=== PATIENT | female | born 1950 | race Caucasian/White ===

== ENCOUNTER 2022-09-05 15:07 | Inpatient (IN) ==
[2022-09-05] MEDS ORDERED: IOPAMIDOL 100 ML BOTTLE IV ONE (15:08)
[2022-09-05] MEDS ORDERED: ONDANSETRON 4 MG/2 ML VIAL IV ONE (15:52)
--- NOTE | 2022-09-05 15:53 | Emergency Department Note ---
Abdominal Pain HPI General Chief Complaint: Abdominal Pain Stated Complaint: abd pain, n/v Time Seen by Provider: 09/05/22 15:34 Source: patient Mode of arrival: EMS History of Present Illness HPI Narrative: Narrative: 72-year-old female with past medical history of hypertension, gastritis, ileus and as below presents with sharp persistent moderate to severe abdominal pain associated with nausea and vomiting for 1 day. No headache dizziness chest pain diarrhea fever or chills Related Data Home Medications Medication Instructions Recorded Confirmed escitalopram oxalate 20 mg tablet 20 mg PO DAILY 07/21/19 07/21/19 gabapentin 300 mg capsule 300 mg PO BID 07/21/19 07/21/19 hydrocodone 10 mg-acetaminophen 1 each PO TIDP PRN Pain 07/21/19 07/21/19 325 mg tablet lisinopril 5 mg tablet 5 mg PO DAILY 07/21/19 07/21/19 tizanidine 2 mg tablet 2 mg PO Q8HP PRN unknown 07/21/19 07/21/19 trazodone 50 mg tablet 50 mg PO HS 07/21/19 07/21/19 Allergies Allergy/AdvReac Type Severity Reaction Status Date / Time No Known Drug Allergies Allergy Verified 05/15/21 22:07 Review of Systems ROS ROS Narrative: Narrative: All systems ED: reviewed and negative except as stated. Constitutional: Reports as per HPI [facility] Narrative Patient History Narrative: Narrative: Medical/Surgical/Family History All Active Problems (Updated 09/05/22 @ 18:56 by Geovany Delacruz MD) Leukocytosis, unspecified (Acute) Small bowel obstruction (Acute) Gastritis (Acute) Acute hypokalemia (Acute) Ileus (Acute) Abdominal pain (Acute) Hyponatremia (Acute) Abdominal pain (Acute) Complete obstruction of small intestine (Acute) Medical History (Updated 09/05/22 @ 18:56 by Geovany Delacruz MD) Pelvic abscess Surgical History (Updated 09/05/22 @ 18:53 by Geovany Delacruz MD) H/O exploratory laparotomy H/O resection of small bowel Exam Narrative Narrative: Narrative: General General appearance: Present alert and in no apparent distress Head Head: Present atraumatic and normocephalic Eye Eye: Present normal appearance ENT ENT: Present mucous membranes dry Respiratory Respiratory: Present normal lung sounds bilaterally Cardiovascular Cardiovascular: Present regular rate, normal rhythm and normal heart sounds Extremities Extremities: Absent pedal edema, cyanosis or clubbing Neurological Neurological: Present alert and oriented X3 Course Course Course Narrative: CBC, CMP, amylase, lipase, lactic acid, troponin, C-reactive protein, urinalysis, chest x-ray, CT abdomen/pelvis with contrast were obtained. Normal saline 1000 mL IV was given. Zofran 4 mg IV was given. BC count is high at 17.4 with left shift chest x-ray is negative for acute pathology. CT scan a bdomen pelvis is with contrast is consistent with [facility] NAME: Linden Saenz [address] [place] [address] : 1950 [address] Service Date: 09/05/22 Report # [id number] [place] [address] Nitin Witt M.D. MR #: [id number] Cat Scan Report Signed Ordering Physician:Andres Hale M.D. Date of Service:09/05/22 Procedure(s):CT abdomen pelvis w con INDICATION: abdominal pain, vomiting. History of abdominal surgery although the surgical procedure is not provided COMPARISON: Previous CT scan dated 08/27/2021 TECHNIQUE: Axial images were obtained through the abdomen and pelvis. Sagittally and coronally reformatted images. 70 mL Isovue 370 injected intravenously. Oral contrast material was not administered FINDINGS: Lung bases:Negative. No pulmonary parenchymal nodule. No pleural fluid or pericardial fluid Liver:Negative. No focal intrahepatic mass. No focal abnormality. Liver contour is smooth. No evidence for cirrhosis. There is no biliary or portal venous gas Gallbladder, bilary:No calcified gallstones. No gallbladder wall thickening. No dilated intra or extrahepatic bile ducts. Spleen:No splenomegaly. Normal enhancement of splenic and portal veins. Pancreas:No pancreatic mass. No peripancreatic abnormality Adrenal glands:Negative Kidneys,ureters,bladder:No solid renal mass. No hydronephrosis. No obstructing or nonobstructing calculi. No hydroureter. No ureteral calculus. No bladder stone. No detectable bladder mass. Gastrointestinal:There is an anastomotic suture line in the pelvis. This is presumably in the cecum. There is fecal material. The appendix is visualized although the origin is difficult to determine to evaluate for position of the cecum. The colon is otherwise negative. Dilated fluid-filled small bowel. Jejunum measures 3 cm in cross-sectional diameter. There appears to be a transitional point in the pelvis and there is some fecalization of small bowel contents. Appearance is consistent with small bowel obstruction. Stomach is distended and fluid-filled Appendix: The appendix is visualized and is normal Vascular:There is calcification of the abdominal aorta. No abdominal aortic aneurysm there is calcification at the origin of the celiac trunk and superior mesenteric artery. These vessels are patent Lymphatic:No retroperitoneal or mesenteric adenopathy Mesentery, peritoneum: No free intraperitoneal fluid. No mesenteric or retroperitoneal mass. No intra-abdominal abscess. There is no pneumoperitoneum Reproductive:Uterus is not visualized. There is no adnexal mass Musculoskeletal:Severe degenerative disc disease at L4-5 No abdominal wall or inguinal hernia IMPRESSION: 1. Findings consistent with previous colonic surgery at the level of the cecum 2. Distended fluid-filled small bowel with fecalized contents. Appearance is consistent with mechanical small bowel obstruction. Transition point appears to be in the upper mid pelvis 3. Degenerative disc disease at L4-5. 4. Atherosclerotic calcification. No abdominal aortic aneurysm Will get surgical consult. Dr. Dr. Delacruz who will come and see the patient. Vital Signs Vital signs: Vital Signs Temperature 97.3 F 09/05/22 15:12 Pulse Rate 92 H 09/05/22 15:12 Respiratory Rate 16 09/05/22 15:12 Blood Pressure 183/138 09/05/22 15:12 Pulse Oximetry (%) 98 09/05/22 15:12 Oxygen Delivery Method 09/05/22 15:12 Temperature 97.3 F 09/05/22 15:12 Pulse Rate 92 H 09/05/22 18:38 Respiratory Rate 16 09/05/22 15:12 Blood Pressure 150/90 09/05/22 18:30 Pulse Oximetry (%) 97 09/05/22 18:38 Oxygen Delivery Method 09/05/22 15:12 [facility] MDM Narrative Medical decision making narrative: Narrative: Lab Data Result diagrams: 09/05/22 15:50 Labs: Lab Results 09/05/22 09/05/22 09/05/22 Range/Units 15:50 15:50 15:50 WBC 17.4 H (4.5-11.0) K/mcL RBC 4.91 (3.59-5.38) M/mcL Hgb 15.1 (11.2-15.7) g/dL Hct 43.7 (34.1-44.9) % POC Hct (36-48) MCV 89.0 (80.0-100.0) fL MCH 30.8 (26.0-34.0) pg MCHC 34.6 (31.0-36.0) g/dL RDW 12.2 (11.5-14.5) % Plt Count 522 H (140-440) K/mcL MPV 9.5 (8.8-12.5) fL Immature Gran % (Auto) 0.4 (0.0-0.5) % Neut % (Auto) 83.4 H (38.0-78.0) % Lymph % (Auto) 12.0 L (15.5-49.0) % [place] % (Auto) 3.8 (1.0-12.0) % Eos % (Auto) 0.2 (0.0-7.0) % Baso % (Auto) 0.2 (0.0-2.0) % Lymph # (Auto) 2.09 (1.50-4.80) K/mcL [place] # (Auto) 0.67 (0.10-0.90) K/mcL Eos # (Auto) 0.03 (0.00-0.70) K/mcL Baso # (Auto) 0.03 (0.00-0.30) K/mcL Immature Gran # 0.07 H (0.00-0.05) K/mcl Absolute Neutrophils 14.53 H (1.80-8.00) K/mcL VBG Lactic Acid 1.7 (0.5-2.0) mmol/L POC Sodium (133-145) POC Potassium (3.3-5.1) POC Chloride (96-108) POC Total CO2 (22-30) POC BUN (6-20) POC Creatinine (0.6-1.2) POC Glucose (70-105) POC WB Ioniz Calcium (1.16-1.32) Total Bilirubin 0.5 (0.1-1.0) mg/dL Direct Bilirubin < 0.2 (0-0.3) mg/dL AST 26 (<32) U/L ALT 16 (<40) U/L Alkaline Phosphatase 93 (39-117) U/L Troponin T < 0.01 (<0.03) ng/mL C-Reactive Protein < 0.30 (0.03-0.80) mg/dL Total Protein 8.0 (5.9-8.4) gm/dL Albumin 4.8 (3.2-5.2) gm/dL Globulin 3.2 (2.2-3.7) gm/dL Amylase 64 (28-100) U/L 09/05/22 Range/Units 15:54 WBC (4.5-11.0) K/mcL RBC (3.59-5.38) M/mcL Hgb (11.2-15.7) g/dL Hct (34.1-44.9) % POC Hct 48.0 (36-48) MCV (80.0-100.0) fL MCH (26.0-34.0) pg MCHC (31.0-36.0) g/dL RDW (11.5-14.5) % Plt Count (140-440) K/mcL MPV (8.8-12.5) fL Immature Gran % (Auto) (0.0-0.5) % Neut % (Auto) (38.0-78.0) % Lymph % (Auto) (15.5-49.0) % [place] % (Auto) (1.0-12.0) % Eos % (Auto) (0.0-7.0) % Baso % (Auto) (0.0-2.0) % Lymph # (Auto) (1.50-4.80) K/mcL [place] # (Auto) (0.10-0.90) K/mcL Eos # (Auto) (0.00-0.70) K/mcL Baso # (Auto) (0.00-0.30) K/mcL Immature Gran # (0.00-0.05) K/mcl Absolute Neutrophils (1.80-8.00) K/mcL VBG Lactic Acid (0.5-2.0) mmol/L POC Sodium 136 (133-145) POC Potassium 3.3 (3.3-5.1) POC Chloride 101 (96-108) POC Total CO2 21.0 L (22-30) POC BUN 12 (6-20) POC Creatinine 0.7 (0.6-1.2) POC Glucose 124 H (70-105) POC WB Ioniz Calcium 1.15 L (1.16-1.32) Total Bilirubin (0.1-1.0) mg/dL Direct Bilirubin (0-0.3) mg/dL AST (<32) U/L ALT (<40) U/L Alkaline Phosphatase (39-117) U/L Troponin T (<0.03) ng/mL C-Reactive Protein (0.03-0.80) mg/dL Total Protein (5.9-8.4) gm/dL Albumin (3.2-5.2) gm/dL Globulin (2.2-3.7) gm/dL Amylase (28-100) U/L Discharge Plan Patient/Caregiver Discharge Instructions Pt seen by DIRECTOR OF SUSTAINABILITY PROGRAMS/PA only: No Clinical Impression: Abdominal pain, Complete obstruction of small intestine Patient Disposition: Xfer As Inpt ([facility]) Condition: Fair Follow up with: Marguerite Sims ARNP [Primary Care Provider] - Prescriptions: No Action tizanidine 2 MG tablet 2 mg PO Q8HP PRN (Reason: unknown) trazodone 50 MG tablet 50 mg PO HS hydrocodone-acetaminophen 1 EACH tablet 1 each PO TIDP PRN (Reason: Pain) gabapentin 300 MG capsule 300 mg PO BID lisinopril 5 MG tablet 5 mg PO DAILY escitalopram oxalate 20 MG tablet 20 mg PO DAILY
[2022-09-05] MEDS ORDERED: 0.9 % SODIUM CHLORIDE 1,000 ML IV ONE (15:56)
[2022-09-05 15:57] LABS: POC Calcium, Ionized 1.15 (1.16-1.32); POC Creatinine 0.7 (0.6-1.2); POC Potassium 3.3 (3.3-5.1)
[2022-09-05] MEDS ORDERED: HYDROmorphone 0.5 MG/0.5 ML SYRINGE IV ONE ×2 (15:57→16:57)
[2022-09-05 16:54] LABS: Basophils # (Auto) 0.03 K/mcL (0.00-0.30); Basophils % (Auto) 0.2 % (0.0-2.0); Eosinophils # (Auto) 0.03 K/mcL (0.00-0.70); Eosinophils % (Auto) 0.2 % (0.0-7.0); Hematocrit 43.7 % (34.1-44.9); Hemoglobin 15.1 g/dL (11.2-15.7); Lymphocytes # (Auto) 2.09 K/mcL (1.50-4.80); Mean Corpuscular HGB Conc 34.6 g/dL (31.0-36.0); Mean Platelet Volume 9.5 fL (8.8-12.5); Monocytes # (Auto) 0.67 K/mcL (0.10-0.90); Monocytes % (Auto) 3.8 % (1.0-12.0); Neutrophils % (Auto) 83.4 % (38.0-78.0); Platelet Count 522 K/mcL (140-440); RBC 4.91 M/mcL (3.59-5.38); Red Cell Distribution Width 12.2 % (11.5-14.5); WBC 17.4 K/mcL (4.5-11.0)
--- NOTE | 2022-09-05 17:00 | Cat Scan Report ---
INDICATION: abdominal pain, vomiting. History of abdominal surgery although the surgical procedure is not provided COMPARISON: Previous CT scan dated 08/27/2021 TECHNIQUE: Axial images were obtained through the abdomen and pelvis. Sagittally and coronally reformatted images. 70 mL Isovue 370 injected intravenously. Oral contrast material was not administered FINDINGS: Lung bases:Negative. No pulmonary parenchymal nodule. No pleural fluid or pericardial fluid Liver:Negative. No focal intrahepatic mass. No focal abnormality. Liver contour is smooth. No evidence for cirrhosis. There is no biliary or portal venous gas Gallbladder, bilary:No calcified gallstones. No gallbladder wall thickening. No dilated intra or extrahepatic bile ducts. Spleen:No splenomegaly. Normal enhancement of splenic and portal veins. Pancreas:No pancreatic mass. No peripancreatic abnormality Adrenal glands:Negative Kidneys,ureters,bladder:No solid renal mass. No hydronephrosis. No obstructing or nonobstructing calculi. No hydroureter. No ureteral calculus. No bladder stone. No detectable bladder mass. Gastrointestinal:There is an anastomotic suture line in the pelvis. This is presumably in the cecum. There is fecal material. The appendix is visualized although the origin is difficult to determine to evaluate for position of the cecum. The colon is otherwise negative. Dilated fluid-filled small bowel. Jejunum measures 3 cm in cross-sectional diameter. There appears to be a transitional point in the pelvis and there is some fecalization of small bowel contents. Appearance is consistent with small bowel obstruction. Stomach is distended and fluid-filled Appendix: The appendix is visualized and is normal Vascular:There is calcification of the abdominal aorta. No abdominal aortic aneurysm there is calcification at the origin of the celiac trunk and superior mesenteric artery. These vessels are patent Lymphatic:No retroperitoneal or mesenteric adenopathy Mesentery, peritoneum: No free intraperitoneal fluid. No mesenteric or retroperitoneal mass. No intra-abdominal abscess. There is no pneumoperitoneum Reproductive:Uterus is not visualized. There is no adnexal mass Musculoskeletal:Severe degenerative disc disease at L4-5 No abdominal wall or inguinal hernia IMPRESSION: 1. Findings consistent with previous colonic surgery at the level of the cecum 2. Distended fluid-filled small bowel with fecalized contents. Appearance is consistent with mechanical small bowel obstruction. Transition point appears to be in the upper mid pelvis 3. Degenerative disc disease at L4-5. 4. Atherosclerotic calcification. No abdominal aortic aneurysm The exam was performed using radiation dose optimization techniques including, but not limited to, automated exposure control, adjustment of the mA and/or kV according to patient size and use of iterative reconstruction technique. Interpreted and Authenticated by: Nitin Witt 09/05/22
[2022-09-05 17:19] LABS: ALT/SGPT 16 U/L (<40); AST/SGOT 26 U/L (<32); Albumin 4.8 gm/dL (3.2-5.2); Alkaline Phosphatase 93 U/L (39-117); Amylase 64 U/L (28-100); Bilirubin,Direct < 0.2 mg/dL (0-0.3); Bilirubin,Total 0.5 mg/dL (0.1-1.0); C-Reactive Protein < 0.30 mg/dL (0.03-0.80); Globulin 3.2 gm/dL (2.2-3.7)
--- NOTE | 2022-09-05 17:21 | XRay Report ---
INDICATION: abdominal pain TECHNIQUE: AP portable upright chest x-ray COMPARISON: None FINDINGS: Lungs:Lungs are negative. No focal pulmonary parenchymal infiltrate or mass Heart, vascular:No significant cardiomegaly. Pulmonary vascularity is normal. No pulmonary edema or pulmonary congestion Mediastinum, charlene:No mediastinal widening. No hilar mass Pleura:No pleural fluid. No pleural-based mass or calcification Skeletal:Negative. IMPRESSION: Negative AP chest x-ray Interpreted and Authenticated by: Nitin Witt 09/05/22
[2022-09-05] MEDS ORDERED: ONDANSETRON 4 MG/2 ML VIAL IV PRN (18:30)
[2022-09-05] MEDS ORDERED: PROMETHAZINE 25 MG/ML VIAL IV PRN (18:30)
--- NOTE | 2022-09-05 18:46 | General Surg History&Physical ---
HPI History of Present Illness Patient information: Note initiated : 09/05/22 at 6:46 pm Service Date, if different from initiated Date: [] Patient: Linden Saenz a 72 y/o F admitted on for abd pain, n/v. Chief Complaint: [] Chief complaint: Small bowel obstruction History of present illness: Ms. Saenz is a 72 year old F admitted with a 48-hour history of crampy abdominal pain with nausea and vomiting. The patient has a prior history of a partial intestinal obstruction. She has been seen in the emergency room for evaluation but symptoms have resolved spontaneously. She presents with new onset of crampy lower abdominal pain with abdominal distention. She had regular small bowel movement last evening and today. She had some flatus on yesterday but none today. CT of the abdomen suggest partial small bowel obstruction with the area of partial obstruction being in the pelvis. Her colon does not appear to be dilated or obstructed. Patient is admitted and will start on nasogastric suction. She will probably need to have small bowel follow-through in the morning based on her morning abdominal x-rays. This is discussed with the patient and her significant other and they agree with this plan. Constitutional Constitutional: Present fatigue, lethargy, malaise, weakness and weight loss EENT Ears: Absent decreased hearing, ear pain or tinnitus Nose, mouth and throat: Absent dizziness, dysphagia, tongue swelling or vertigo Respiratory Respiratory: Absent cough, wheezing or chest congestion Gastrointestinal Gastrointestinal: Present abdominal pain, belching, constipation, cramping, early satiety, heartburn, nausea and vomiting; Absent tenesmus Genitourinary Genitourinary: Absent urinary frequency, urinary hesitancy or urinary urgency Musculoskeletal Musculoskeletal: Absent abnormal gait, myalgias, neck pain, numbness or stiffness Integumentary Integumentary: Absent changing lesions, new lesions, pruritus or rash Neurological Neurological: Absent abnormal gait, abnormal movements, abnormal speech, behavioral changes, focal weakness, memory loss or syncope Psychiatric Psychiatric: Absent depression Endocrine Endocrine: Absent excessive sweating, heat intolerance or palpitations Hematologic/Lymphatic Hematologic/Lymphatic: Absent easy bleeding, easy bruising or lymphadenopathy Allergic/Immunologic Allergic/Immunologic: Absent tongue swelling, throat swelling, seasonal rhinorrhea, uticaria, wheezing or lip swelling PFSH PFSH All Active Problems (Updated 09/05/22 @ 18:56 by Geovany Delacruz MD) Leukocytosis, unspecified (Acute) Small bowel obstruction (Acute) Gastritis (Acute) Acute hypokalemia (Acute) Ileus (Acute) Abdominal pain (Acute) Hyponatremia (Acute) Abdominal pain (Acute) Complete obstruction of small intestine (Acute) Medical History (Updated 09/05/22 @ 18:56 by Geovany Delacruz MD) Pelvic abscess Surgical History (Updated 09/05/22 @ 18:53 by Geovany Delacruz MD) H/O exploratory laparotomy H/O resection of small bowel MEDS/ALLERGIES Home Medications and Allergies Home Medications Medication Instructions Recorded Confirmed Type escitalopram oxalate 20 mg tablet 20 mg PO DAILY 07/21/19 07/21/19 History gabapentin 300 mg capsule 300 mg PO BID 07/21/19 07/21/19 History hydrocodone 10 mg-acetaminophen 1 each PO TIDP PRN Pain 07/21/19 07/21/19 History 325 mg tablet lisinopril 5 mg tablet 5 mg PO DAILY 07/21/19 07/21/19 History tizanidine 2 mg tablet 2 mg PO Q8HP PRN unknown 07/21/19 07/21/19 History trazodone 50 mg tablet 50 mg PO HS 07/21/19 07/21/19 History Allergies Allergy/AdvReac Type Severity Reaction Status Date / Time No Known Drug Allergies Allergy Verified 05/15/21 22:07 Physical Examination Vital Signs Vital signs: Temp Pulse Resp BP Pulse Ox O2 Del Method 97.3 F 92 H 16 150/90 97 09/05/22 15:12 09/05/22 18:38 09/05/22 15:12 09/05/22 18:30 09/05/22 18:38 09/05/22 15:12 General physical appearance General physical exam: moderate distress, moderate pain, cachectic and chronically ill Eyes Eye exam: PERRL and normal ocular movement ENT ENT exam: normal nares, normal mucosa, no hearing loss, no congestion and poor fdc Head Head exam IM: Present atraumatic, normal inspection and normocephalic Neck Neck exam: no masses, no bruits, trachea midline, no lymphadenopathy and no venous distension Cardiovascular Cardiovascular exam IM: Present normal rate and rhythm, RRR, +S1 and +S2; Absent JVD, systolic murmur or tachycardia Respiratory Respiratory exam: normal expansion, normal respiratory effort and clear to auscultation Abdomen Abdomen: Present tender (Tender in suprapubic and hypogastric area) and distended (Distention of the lower abdomen) Hernia: Present none Integumentary Integumentary: Present no rash, no growths and no abnormal pigmentation Neurologic Neurologic: Present normal coordination and normal sensation Musculoskeletal Musculoskeletal: Present normal gait and normal posture Psychiatric Psychiatric: Present oriented to time, oriented to person, oriented to place, speech is normal and memory intact Results Labs Result diagrams: 09/05/22 15:50 Labs: Abnormal lab results 09/05/22 09/05/22 Range/Units 15:50 15:54 WBC 17.4 H (4.5-11.0) K/mcL Plt Count 522 H (140-440) K/mcL Neut % (Auto) 83.4 H (38.0-78.0) % Lymph % (Auto) 12.0 L (15.5-49.0) % Immature Gran # 0.07 H (0.00-0.05) K/mcl Absolute Neutrophils 14.53 H (1.80-8.00) K/mcL POC Total CO2 21.0 L (22-30) POC Glucose 124 H (70-105) POC WB Ioniz Calcium 1.15 L (1.16-1.32) Diabetes panel 09/05/22 Range/Units 15:50 AST 26 (<32) U/L ALT 16 (<40) U/L Alkaline Phosphatase 93 (39-117) U/L Total Protein 8.0 (5.9-8.4) gm/dL Albumin 4.8 (3.2-5.2) gm/dL Calcium panel 09/05/22 Range/Units 15:50 Albumin 4.8 (3.2-5.2) gm/dL Adrenal panel 09/05/22 Range/Units 15:50 Total Bilirubin 0.5 (0.1-1.0) mg/dL AST 26 (<32) U/L ALT 16 (<40) U/L Alkaline Phosphatase 93 (39-117) U/L Total Protein 8.0 (5.9-8.4) gm/dL Albumin 4.8 (3.2-5.2) gm/dL All other labs normal. A/P Assessment and plan (1) Small bowel obstruction: Status: Acute (2) Abdominal pain: Status: Acute (3) Leukocytosis, unspecified: Status: Acute Plan Nasogastric suction tonight 2 view abdominal x-rays in the morning Small bowel follow-through after initial x-rays Zosyn 3.375 g IV every 6 Reglan 10 mg IV every 6 RellSTOR 12 mg subcu daily Time Spent With Patient Time: Total time spent is greater than 50% in coordination of care (as documented) at patient's floor/unit and/or counseling patient:
[2022-09-05] MEDS: PIPERACILLIN SODIUM/TAZOBACTAM 3.375 GM in DEXTROSE 5% IN WATER 50 ML IV SCH (19:25)
[2022-09-05] MEDS: 0.9 % SODIUM CHLORIDE 1,000 ML IV SCH (19:25)
[2022-09-05] MEDS: HYDROmorphone 0.5 MG/0.5 ML SYRINGE IV PRN ×2 (20:21→22:26)
[2022-09-05 21:13] LABS: Appearance,Urine CLEAR (Clear); Bilirubin,Urine Negative (Negative); Color,Urine YELLOW; Culture Indicated,Urine No; Glucose,Urine (UA) Negative (Negative); Ketones,Urine 5 mg/dL (Negative); Leukocyte Esterase,Urine Negative /uL (Negative); Nitrate,Urine Negative (Negative); Protein,Urine Negative (Negative); Specific Gravity,Urine > 1.060 (1.000-1.035); Urine Blood Negative (Negative); Urobilinogen,Urine Negative
[2022-09-05] MEDS ORDERED: ACETAMINOPHEN 1,000 MG/100 ML BAG IV ONE (22:10)
[2022-09-05] MEDS: ACETAMINOPHEN 650 MG/65 ML BAG IV PRN (22:12)
[2022-09-05] MEDS: 0.9 % SODIUM CHLORIDE 10 ML SYRINGE IV SCH (22:14)
[2022-09-06] MEDS: PIPERACILLIN SODIUM/TAZOBACTAM 3.375 GM in DEXTROSE 5% IN WATER 50 ML IV SCH ×5 (00:23→23:41)
[2022-09-06] MEDS: HYDROmorphone 0.5 MG/0.5 ML SYRINGE IV PRN ×2 (00:24→03:41)
[2022-09-06] MEDS: METOCLOPRAMIDE 10 MG/2 ML VIAL IV SCH ×5 (00:30→23:41)
[2022-09-06] MEDS: 0.9 % SODIUM CHLORIDE 1,000 ML IV SCH ×4 (03:48→22:07)
[2022-09-06] MEDS: 0.9 % SODIUM CHLORIDE 10 ML SYRINGE IV SCH ×3 (05:33→20:12)
--- NOTE | 2022-09-06 05:51 | XRay Report ---
INDICATION: NG placement TECHNIQUE: Supine abdomen. COMPARISON: CT scan dated 09/05/2022 FINDINGS:Esophagogastric tube with its tip in the left upper quadrant consistent with gastric fundus. Prominent gas-filled small bowel, essentially unchanged since previous CT scan. IMPRESSION: Esophagogastric tube in the stomach Interpreted and Authenticated by: Nitin Witt 09/06/22
[2022-09-06 07:49] LABS: ALT/SGPT 33 U/L (<40); AST/SGOT 53 U/L (<32); Albumin 3.4 gm/dL (3.2-5.2); Albumin/Globulin Ratio 1.5 (1.0-2.3); Alkaline Phosphatase 64 U/L (39-117); Bilirubin,Direct < 0.2 mg/dL (0-0.3); Bilirubin,Total 0.3 mg/dL (0.1-1.0); Blood Urea Nitrogen 8 mg/dL (8-23); Calcium 8.3 mg/dL (8.6-10.4); Carbon Dioxide 22 mmol/L (22-30); Chloride 103 mmol/L (96-108); Globulin 2.3 gm/dL (2.2-3.7); Glomerular Filtration Rate 88; Glucose 100 mg/dL (70-105); Lactate Dehydrogenase 204 U/L (135-225); Phosphorous 3.9 mg/dL (2.5-4.5); Triglycerides 111 mg/dL (<150); Uric Acid 2.6 mg/dL (2.5-8.0)
[2022-09-06 08:39] LABS: Basophils # (Auto) 0.03 K/mcL (0.00-0.30); Basophils % (Auto) 0.2 % (0.0-2.0); Eosinophils % (Auto) 0.7 % (0.0-7.0); Hematocrit 35.3 % (34.1-44.9); Hemoglobin 11.7 g/dL (11.2-15.7); Lymphocytes # (Auto) 3.52 K/mcL (1.50-4.80); Lymphocytes % (Auto) 25.5 % (15.5-49.0); Mean Cell Volume 93.9 fL (80.0-100.0); Mean Corpuscular HGB Conc 33.1 g/dL (31.0-36.0); Mean Platelet Volume 9.4 fL (8.8-12.5); Monocytes # (Auto) 1.27 K/mcL (0.10-0.90); Monocytes % (Auto) 9.2 % (1.0-12.0); Neutrophils % (Auto) 64.1 % (38.0-78.0); Platelet Count 393 K/mcL (140-440); RBC 3.76 M/mcL (3.59-5.38); Red Cell Distribution Width 12.7 % (11.5-14.5); WBC 13.8 K/mcL (4.5-11.0)
[2022-09-06] MEDS: METHYLNALTREXONE BROMIDE 12 MG/0.6 ML SYRINGE SQ SCH (08:40)
[2022-09-06] MEDS: ACETAMINOPHEN 650 MG/65 ML BAG IV PRN (08:47)
--- NOTE | 2022-09-06 10:02 | XRay Report ---
INDICATION: F/U SMALL BOWEL OBSTRUCTION TECHNIQUE: Supine and upright abdomen. COMPARISON: Previous abdomen dated 09/06/2022. Previous CT scan dated 09/05/2022 FINDINGS:No change in position of esophagogastric tube in left upper quadrant There is gas within small bowel. There are associated air-fluid levels. Appearance remains consistent with obstruction. Continued follow-up recommended. IMPRESSION: Findings consistent with mechanical small bowel obstruction Interpreted and Authenticated by: Nitin Witt 09/06/22
--- NOTE | 2022-09-06 11:12 | General Surgery Progress Note ---
SUBJECTIVE Subjective Patient information: Note initiated : 09/06/22 at 11:12 am Service Date, if different from initiated Date: [] Patient: Linden Saenz 72 y/o F admitted on 09/05/22 for abd pain, n/v. Chief Complaint: [] Principal diagnosis: Partial small bowel obstruction Interval history: Patient states that she feels better. Her abdominal pain is significantly improved. She has less distention and her abdomen is soft. White blood count 13.8, hemoglobin 11.7, hematocrit 35.3, potassium 3, BUN 6, creatinine 0.5 Constitutional Vitals: Vital Signs Temp Pulse Resp BP Pulse Ox O2 Del Method 98.4 F 83 16 135/82 95 09/06/22 07:52 09/06/22 03:42 09/06/22 07:52 09/06/22 07:52 09/06/22 07:52 09/06/22 07:52 Period Temp Pulse Resp BP Sys/Bernal Pulse Ox O2 Del Method O2 Flow Rate Last 24 Hr 97.3 F-98.8 F 80-95 16-16 131-186/81-138 90-100 Room Air-Room Air Intake and Output 09/05/22 09/06/22 09/06/22 21:59 05:59 13:59 Intake Total 1246 115 115 Output Total 300 Balance 1246 -185 115 Weight 102 lb 12.8 oz Intake & Output: Intake & Output 09/05/22 09/06/22 09/06/22 21:59 05:59 13:59 Intake Total 1246 115 115 Output Total 300 Balance 1246 -185 115 Weight 102 lb 12.8 oz Intake: IV 1246 115 115 Sodium Chloride 0.9% 1,000 ml @ 1196 0 125 mls/hr IV .Q8H TERESA Rx#: [id number] Zosyn 3.375 gm In Dextrose 5% 50 50 50 in Water 50 ml @ 100 mls/hr IV Q6H TERESA Rx#:[id number] Output: Gastric Drainage 200 Right Nare 200 Void Amount 100 Other: Urine Appearance Clear Urine Color Yellow ENT ENT exam: Present normal exam and normal oropharynx Neck Neck exam: Present full ROM and normal inspection; Absent tenderness Respiratory Respiratory exam: Present normal respiratory exam and CTAB; Absent rales Cardiovascular Cardiovascular exam: Present normal rate and rhythm, RRR, +S1 and +S2; Absent gallop or JVD GI/Abdominal GI/Abdominal exam: Present normal bowel sounds (Active bowel sounds), soft (Mild hypogastric tenderness) and distended (Mild distention); Absent guarding Extremities Exam Extremities exam: Present normal inspection and neurovascular intact Neurological Exam Neurological exam: Present oriented X3 and reflexes normal; Absent motor sensory deficit Psychiatric Psychiatric exam: Present normal affect and normal mood A/P Assessment and plan (1) Small bowel obstruction: Status: Acute (2) Leukocytosis, unspecified: Status: Acute (3) Acute hypokalemia: Status: Acute Plan Schedule small bowel follow-through Potassium chloride rider x2 2 view abdominal x-ray in the morning Time Spent With Patient Time: Total time spent is greater than 50% in coordination of care (as documented) at patient's floor/unit and/or counseling patient:
[2022-09-06] MEDS ORDERED: POTASSIUM CHLORIDE 40 MEQ in DEXTROSE 5% IN WATER 500 ML IV ONE (12:00)
[2022-09-06] MEDS ORDERED: DIATRIZOATE MEGLU/DIATRIZO SOD 120 ML BOTTLE PO ONE (13:34)
--- NOTE | 2022-09-06 14:43 | XRay Report ---
INDICATION: Follow-up partial small bowel obstruction TECHNIQUE: Diluted Gastrografin was injected into the stomach through the esophagogastric tube. COMPARISON: None. FINDINGS: There is contrast material within the colon by 2 hours post ingestion. Small bowel is only slightly dilated. Findings are not consistent with significant mechanical small bowel obstruction IMPRESSION: Contrast material within the colon by 2 hours post ingestion Interpreted and Authenticated by: Nitin Witt 09/06/22
--- NOTE | 2022-09-06 20:59 | EKG ---
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 [id number]
[2022-09-07] MEDS: HYDROmorphone 0.5 MG/0.5 ML SYRINGE IV PRN ×3 (02:39→13:43)
[2022-09-07] MEDS: 0.9 % SODIUM CHLORIDE 10 ML SYRINGE IV SCH ×2 (04:54→12:05)
[2022-09-07] MEDS: PIPERACILLIN SODIUM/TAZOBACTAM 3.375 GM in DEXTROSE 5% IN WATER 50 ML IV SCH ×2 (04:57→12:05)
[2022-09-07] MEDS: METOCLOPRAMIDE 10 MG/2 ML VIAL IV SCH ×2 (05:34→12:05)
[2022-09-07] MEDS: 0.9 % SODIUM CHLORIDE 1,000 ML IV SCH ×2 (08:11→13:35)
[2022-09-07] MEDS: METHYLNALTREXONE BROMIDE 12 MG/0.6 ML SYRINGE SQ SCH (08:33)
--- NOTE | 2022-09-07 09:47 | XRay Report ---
CLINICAL INFORMATION: Resolve SBO COMPARISON: 09/06/2022 small bowel follow-through study FINDINGS: The stool gas pattern is unremarkable. Minimal residual barium is seen within the colon There is no free air, soft tissue mass, organomegaly or pathologic calcification. IMPRESSION: Normal abdomen with no evidence of small bowel obstruction. Interpreted and Authenticated by: Nitin Phan 09/07/22
[2022-09-07] MEDS: ACETAMINOPHEN 650 MG/65 ML BAG IV PRN (10:41)
--- NOTE | 2022-09-07 15:25 | Discharge Summary ---
Discharge Provider Provider IMPORTANT FOLLOW-UP INFORMATION FOR PCP: Patient information: Note initiated : 09/07/22 at 3:19 pm Service Date, if different from initiated Date: [] Patient: Linden Saenz 72 y/o F admitted on 09/05/22 for abd pain, n/v. Chief Complaint: [] Date of admission: 09/05/22 21:24 Discharge date: 09/07/22 Primary care physician: Marguerite Sims Admitting clinician: Geovany Delacruz Attending physician on admission: Geovany Delacruz Consults: 09/05/22 Consult to Physician [CONS] Stat Comment: Consulting Provider: Geovany Delacruz Reason For Exam: Physician to Consult Attending physician on discharge: Geovany Delacruz Discharging clinician: Geovany Delacruz COURSE Hospital Course Hospital course: 72-year-old female with prior history of extensive surgery at [facility]. She was hospitalized 60 days after colon resection and reanastomosis. This was followed by an anastomotic leak with multiple peritoneal abscesses. These were drained spontaneously and percutaneously. 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 She presents with increasing abdominal pain nausea and vomiting. She also has decreased flatus and constipation. Patient has been on chronic hydrocodone therapy. She is admitted for nasogastric suction with plans for follow-up small bowel follow-through. The small bowel follow-through showed transit through the bowel into the colon. She did well thereafter and her diet was advanced. Presently she is tolerating diet and is having regular flatus and bowel movements. She is discharged home in satisfactory condition. Discharge diagnosis: Small bowel obstruction Secondary discharge diagnosis: Small bowel obstruction Intra-abdominal adhesions Chronic opiate pain therapy Reason for admission: Small bowel obstruction Procedures: CT of abdomen and pelvis with IV contrast Small bowel follow-through Pertinent studies/significant findings: Small bowel follow-through Complications: None Time Spent with Patient Time attestation: Total time spent providing and/or coordinating discharge services: Time spent: Less than 30 minutes Physical Examination Vital Signs Vital signs: Temp Pulse Resp BP Pulse Ox O2 Del Method 98.1 F 72 20 155/94 98 09/07/22 12:00 09/07/22 12:00 09/07/22 12:00 09/07/22 12:00 09/07/22 12:00 09/07/22 08:00 General physical appearance General physical exam: no distress, no pain, cachectic and chronically ill Eyes Eye exam: PERRL and normal ocular movement ENT ENT exam: normal nares, normal mucosa and no hearing loss Head Head exam IM: Present atraumatic, normal inspection and normocephalic Neck Neck exam: no masses, no bruits, trachea midline, no lymphadenopathy and no venous distension Cardiovascular Cardiovascular exam IM: Present normal rate and rhythm, RRR, +S1 and +S2; Absent JVD or tachycardia Respiratory Respiratory exam: normal expansion, normal respiratory effort and clear to auscultation Abdomen Abdomen: Present soft, non tender and bowel sounds (Normal active bowel sounds) Integumentary Integumentary: Present no rash, no growths and no abnormal pigmentation Neurologic Neurologic: Present normal coordination and normal sensation Musculoskeletal Musculoskeletal: Present normal gait and normal posture Psychiatric Psychiatric: Present oriented to time, oriented to person, oriented to place, speech is normal and memory intact Discharge Plan Patient/Caregiver Discharge Instructions Activity: increase activity as tolerated Diet: Regular Diet Prescriptions: Continued tizanidine 2 MG tablet 2 mg PO Q8HP PRN (Reason: Muscle Spasm) trazodone 50 MG tablet 50 mg PO HS hydrocodone-acetaminophen 1 EACH tablet 1 each PO TIDP PRN (Reason: Pain) lisinopril 5 MG tablet 10 mg PO DAILY B Complex 1 tab PO QDAY buspirone 5 mg tablet 1 tab PO BID magnesium oxide 400 mg (241.3 mg magnesium) tablet 1 tab PO QDAY duloxetine 30 mg capsule,delayed release(DR/EC) 3 cap PO QDAY Prescription drug monitoring program results: PDMP not reviewed Follow Up Plan Follow up with: Marguerite Sims ARNP [Primary Care Provider] - Patient Disposition: Home, Self-Care Prognosis: Good Rehab Potential: Good I certify that the patient requires SNF services: No Overall status at discharge: patient is progressing back to baseline Discharge Orders: Discharge Order (Routine); Ordered 09/07/22 Ordered By: Geovany Delacruz Pending Pending Pending: Resuscitation Status Resuscitate (Full Code) Diet Full Liquid Diet Start WedSep 07 1223 Hydromorphone HCl (Hydromorphone 0.5 Mg/0.5 Ml Syringe) 0.5 mg IV Q2HP PRN; Protocol PRN Reason: Per Pain Protocol Last Admin: 09/07/22 13:43 Dose: 0.5 mg Documented By: Admin: 09/07/22 04:54 Dose: 0.5 mg Documented By: Admin: 09/07/22 02:39 Dose: 0.5 mg Documented By: Admin: 09/06/22 03:41 Dose: 0.5 mg Documented By: Admin: 09/06/22 00:24 Dose: 0.5 mg Documented By: Admin: 09/05/22 22:26 Dose: 0.5 mg Documented By: Admin: 09/05/22 20:21 Dose: 0.5 mg Documented By: DESTINEE Piperacillin Sod/Tazobactam (Sod 3.375 gm/ Dextrose) 50 mls @ 100 mls/hr IV Q6H TERESA; Protocol Last Infusion: 09/07/22 12:40 Dose: 0 mls/hr Documented By: Admin: 09/07/22 12:05 Dose: 100 mls/hr Documented By: Infusion: 09/07/22 05:30 Dose: 0 mls/hr Documented By: Admin: 09/07/22 04:57 Dose: 100 mls/hr Documented By: Infusion: 09/07/22 00:36 Dose: 0 mls/hr Documented By: Admin: 09/06/22 23:41 Dose: 100 mls/hr Documented By: Infusion: 09/06/22 18:35 Dose: 0 mls/hr Documented By: Infusion: 09/06/22 18:04 Dose: 100 mls/hr Documented By: Infusion: 09/06/22 17:04 Dose: 0 mls/hr Documented By: Admin: 09/06/22 17:03 Dose: 100 mls/hr Documented By: Infusion: 09/06/22 11:50 Dose: 0 mls/hr Documented By: Admin: 09/06/22 11:19 Dose: 100 mls/hr Documented By: Infusion: 09/06/22 06:03 Dose: 0 mls/hr Documented By: Admin: 09/06/22 05:32 Dose: 100 mls/hr Documented By: Infusion: 09/06/22 00:53 Dose: 0 mls/hr Documented By: Admin: 09/06/22 00:23 Dose: 100 mls/hr Documented By: Infusion: 09/05/22 19:55 Dose: 0 mls/hr Documented By: Admin: 09/05/22 19:25 Dose: 100 mls/hr Documented By: DESTINEE Acetaminophen (Ofirmev) 650 mg in 65 mls @ 130 mls/hr IV Q6HP PRN; Protocol PRN Reason: PAIN/FEVER > 101 Last Infusion: 09/07/22 11:11 Dose: 0 mls/hr Documented By: Admin: 09/07/22 10:41 Dose: 130 mls/hr Documented By: Infusion: 09/06/22 09:24 Dose: 0 mls/hr Documented By: Admin: 09/06/22 08:47 Dose: 130 mls/hr Documented By: Infusion: 09/05/22 22:43 Dose: 0 mls/hr Documented By: Admin: 09/05/22 22:12 Dose: 130 mls/hr Documented By: MAGED Methylnaltrexone Ocate (Methylnaltrexone Ocate 12 Mg/0.6 Ml Syringe) 12 mg SQ DAILY [facility] Stop: 09/08/22 09:01 Last Admin: 09/07/22 08:33 Dose: 12 mg Documented By: Admin: 09/06/22 08:40 Dose: 12 mg Documented By: ERASTO Metoclopramide HCl (Metoclopramide 10 Mg/2 Ml Vial) 10 mg IV Q6 TERESA Last Admin: 09/07/22 12:05 Dose: 10 mg Documented By: Admin: 09/07/22 05:34 Dose: 10 mg Documented By: Admin: 09/06/22 23:41 Dose: 10 mg Documented By: Admin: 09/06/22 17:03 Dose: 10 mg Documented By: Admin: 09/06/22 11:17 Dose: 10 mg Documented By: Admin: 09/06/22 05:32 Dose: 10 mg Documented By: Admin: 09/06/22 00:30 Dose: 10 mg Documented By: MAGED Ondansetron HCl (Ondansetron 4 Mg/2 Ml Vial) 4 mg IV Q6HP PRN PRN Reason: Nausea And Vomiting Last Admin: 09/05/22 22:26 Dose: 4 mg Documented By: MAGED Sodium Chloride (0.9 % Sodium Chloride 10 Ml Syringe) 10 ml IV Q8 TERESA Last Admin: 09/07/22 12:05 Dose: 10 ml Documented By: Admin: 09/07/22 04:54 Dose: Not Given Documented By: Admin: 09/06/22 20:12 Dose: Not Given Documented By: Admin: 09/06/22 12:28 Dose: Not Given Documented By: Admin: 09/06/22 05:33 Dose: Not Given Documented By: Admin: 09/05/22 22:14 Dose: Not Given Documented By: MAGED Shift Summary 09/07/22 04:25 Shift Summary by Radha Rocha Addendum entered by Radha Rocha RN 09/07/22 06:16: Correction: BP 140's-160's on RA Original Note: Primary Diagnosis: SBO Registration Status: IP Date of Surgery (if applicable): N/A Pertinent Medical Dx/Issue(s): HTN, gastritis, pelvic abscess, small bowel resection Med management (antibiotics, diuretics, BP): Zosyn, reglan Q6H, relistor daily for 3 doses, ofirmev PRN for abd pain, 09/06- 40mEq K rider for K of 3.4 Skin/Wound Care: Skin WNL Vital Signs with Trends: VSS on RA Pain management (acute vs. chronic): Acute; C/o pain to Abd and received Dilaudid x1 with desired results Lab/Rad (abnormal, trends): Abd XR 2 view scheduled this AM Neuro/Mental Status: Alert and oriented x4; pleasant and cooperative Diet: Currently on CL but will be FL at 0800 Urinary Elimination Device: Up to BSC with SBA Urinary output greater than 30mL/hr? Yes Date of last BM: 09/06 Lines/Tubes: IV to R wrist infusing NS @125ml/hr; NGT d/c Activity: Bedrest with BR privileges, up with SBA for management of IV Recommendations/questions for MD: Discharge Plan (needs, disposition, etc): TBD; will return home when medically cleared Initialized on 09/07/22 04:25 - END OF NOTE
--- NOTE | 2022-09-07 15:42 | Discharge Summary ---
Discharge Provider Provider IMPORTANT FOLLOW-UP INFORMATION FOR PCP: Patient information: Note initiated : 09/07/22 at 3:40 pm Service Date, if different from initiated Date: [] Patient: Linden Saenz 72 y/o F admitted on 09/05/22 for abd pain, n/v. Chief Complaint: [] Date of admission: 09/05/22 21:24 Primary care physician: Marguerite Sims Consults: 09/05/22 Consult to Physician [CONS] Stat Comment: Consulting Provider: Geovany Delacruz Reason For Exam: Physician to Consult COURSE Time Spent with Patient Time attestation: Total time spent providing and/or coordinating discharge services: Physical Examination Vital Signs Vital signs: Temp Pulse Resp BP Pulse Ox O2 Del Method 98.1 F 72 20 155/94 98 09/07/22 12:00 09/07/22 12:00 09/07/22 12:00 09/07/22 12:00 09/07/22 12:00 09/07/22 08:00 Discharge Plan Patient/Caregiver Discharge Instructions Activity: increase activity as tolerated Diet: Regular Diet Prescriptions: Continued tizanidine 2 MG tablet 2 mg PO Q8HP PRN (Reason: Muscle Spasm) trazodone 50 MG tablet 50 mg PO HS hydrocodone-acetaminophen 1 EACH tablet 1 each PO TIDP PRN (Reason: Pain) lisinopril 5 MG tablet 10 mg PO DAILY B Complex 1 tab PO QDAY buspirone 5 mg tablet 1 tab PO BID magnesium oxide 400 mg (241.3 mg magnesium) tablet 1 tab PO QDAY duloxetine 30 mg capsule,delayed release(DR/EC) 3 cap PO QDAY Prescription drug monitoring program results: PDMP not reviewed Follow Up Plan Follow up with: Marguerite Sims ARNP [Primary Care Provider] - Patient Disposition: Home, Self-Care Prognosis: Good Rehab Potential: Good I certify that the patient requires SNF services: No Overall status at discharge: patient is progressing back to baseline Discharge Orders: Discharge Order (Routine); Ordered 09/07/22 Ordered By: Geovany Delacruz Pending Pending Pending: Resuscitation Status Resuscitate (Full Code) Diet Full Liquid Diet Start WedSep 07 1223 Hydromorphone HCl (Hydromorphone 0.5 Mg/0.5 Ml Syringe) 0.5 mg IV Q2HP PRN; Protocol PRN Reason: Per Pain Protocol Last Admin: 09/07/22 13:43 Dose: 0.5 mg Documented By: Admin: 09/07/22 04:54 Dose: 0.5 mg Documented By: Admin: 09/07/22 02:39 Dose: 0.5 mg Documented By: Admin: 09/06/22 03:41 Dose: 0.5 mg Documented By: Admin: 09/06/22 00:24 Dose: 0.5 mg Documented By: Admin: 09/05/22 22:26 Dose: 0.5 mg Documented By: Admin: 09/05/22 20:21 Dose: 0.5 mg Documented By: DESTINEE Piperacillin Sod/Tazobactam (Sod 3.375 gm/ Dextrose) 50 mls @ 100 mls/hr IV Q6H TERESA; Protocol Last Infusion: 09/07/22 12:40 Dose: 0 mls/hr Documented By: Admin: 09/07/22 12:05 Dose: 100 mls/hr Documented By: Infusion: 09/07/22 05:30 Dose: 0 mls/hr Documented By: Admin: 09/07/22 04:57 Dose: 100 mls/hr Documented By: Infusion: 09/07/22 00:36 Dose: 0 mls/hr Documented By: Admin: 09/06/22 23:41 Dose: 100 mls/hr Documented By: Infusion: 09/06/22 18:35 Dose: 0 mls/hr Documented By: Infusion: 09/06/22 18:04 Dose: 100 mls/hr Documented By: Infusion: 09/06/22 17:04 Dose: 0 mls/hr Documented By: Admin: 09/06/22 17:03 Dose: 100 mls/hr Documented By: Infusion: 09/06/22 11:50 Dose: 0 mls/hr Documented By: Admin: 09/06/22 11:19 Dose: 100 mls/hr Documented By: Infusion: 09/06/22 06:03 Dose: 0 mls/hr Documented By: Admin: 09/06/22 05:32 Dose: 100 mls/hr Documented By: Infusion: 09/06/22 00:53 Dose: 0 mls/hr Documented By: Admin: 09/06/22 00:23 Dose: 100 mls/hr Documented By: Infusion: 09/05/22 19:55 Dose: 0 mls/hr Documented By: Admin: 09/05/22 19:25 Dose: 100 mls/hr Documented By: DESTINEE Acetaminophen (Ofirmev) 650 mg in 65 mls @ 130 mls/hr IV Q6HP PRN; Protocol PRN Reason: PAIN/FEVER > 101 Last Infusion: 09/07/22 11:11 Dose: 0 mls/hr Documented By: Admin: 09/07/22 10:41 Dose: 130 mls/hr Documented By: Infusion: 09/06/22 09:24 Dose: 0 mls/hr Documented By: Admin: 09/06/22 08:47 Dose: 130 mls/hr Documented By: Infusion: 09/05/22 22:43 Dose: 0 mls/hr Documented By: Admin: 09/05/22 22:12 Dose: 130 mls/hr Documented By: MAGED Methylnaltrexone [place] (Methylnaltrexone [place] 12 Mg/0.6 Ml Syringe) 12 mg SQ DAILY TERESA Stop: 09/08/22 09:01 Last Admin: 09/07/22 08:33 Dose: 12 mg Documented By: Admin: 09/06/22 08:40 Dose: 12 mg Documented By: ERASTO Metoclopramide HCl (Metoclopramide 10 Mg/2 Ml Vial) 10 mg IV Q6 TERESA Last Admin: 09/07/22 12:05 Dose: 10 mg Documented By: Admin: 09/07/22 05:34 Dose: 10 mg Documented By: Admin: 09/06/22 23:41 Dose: 10 mg Documented By: Admin: 09/06/22 17:03 Dose: 10 mg Documented By: Admin: 09/06/22 11:17 Dose: 10 mg Documented By: Admin: 09/06/22 05:32 Dose: 10 mg Documented By: Admin: 09/06/22 00:30 Dose: 10 mg Documented By: MAGED Ondansetron HCl (Ondansetron 4 Mg/2 Ml Vial) 4 mg IV Q6HP PRN PRN Reason: Nausea And Vomiting Last Admin: 09/05/22 22:26 Dose: 4 mg Documented By: MAGED Sodium Chloride (0.9 % Sodium Chloride 10 Ml Syringe) 10 ml IV Q8 TERESA Last Admin: 09/07/22 12:05 Dose: 10 ml Documented By: Admin: 09/07/22 04:54 Dose: Not Given Documented By: Admin: 09/06/22 20:12 Dose: Not Given Documented By: Admin: 09/06/22 12:28 Dose: Not Given Documented By: Admin: 09/06/22 05:33 Dose: Not Given Documented By: Admin: 09/05/22 22:14 Dose: Not Given Documented By: MAGED Shift Summary 09/07/22 04:25 Shift Summary by Radha Rocha Addendum entered by Radha Rocha RN 09/07/22 06:16: Correction: BP 140's-160's on RA Original Note: Primary Diagnosis: SBO Registration Status: Date of Surgery (if applicable): N/A Pertinent Medical Dx/Issue(s): HTN, gastritis, pelvic abscess, small bowel resection Med management (antibiotics, diuretics, BP): Zosyn, reglan Q6H, relistor daily for 3 doses, ofirmev PRN for abd pain, 09/06- 40mEq K rider for K of 3.4 Skin/Wound Care: Skin WNL Vital Signs with Trends: VSS on RA Pain management (acute vs. chronic): Acute; C/o pain to Abd and received Dilaudid x1 with desired results Lab/Rad (abnormal, trends): Abd XR 2 view scheduled this AM Neuro/Mental Status: Alert and oriented x4; pleasant and cooperative Diet: Currently on CL but will be FL at 0800 Urinary Elimination Device: Up to BSC with SBA Urinary output greater than 30mL/hr? Yes Date of last BM: 09/06 Lines/Tubes: IV to R wrist infusing NS @125ml/hr; NGT d/c Activity: Bedrest with BR privileges, up with SBA for management of IV Recommendations/questions for MD: Discharge Plan (needs, disposition, etc): TBD; will return home when medically cleared Initialized on 09/07/22 04:25 - END OF NOTE
== END 2022-09-07 16:35 | disposition home or self-care (01) | DRG 389 ==
LOC: ED 15:07 → MEDSUR 21:24
PROVIDERS: ADMIT Family Medicine Adult Medicine; ATTEND Family Medicine Adult Medicine